=== PATIENT | male | born 1960 | race Caucasian/White ===

== ENCOUNTER 2021-08-09 00:09 | Day surgery (SDC) | payer OTHER, SELFPAY ==
[2021-07-25 13:44] VITALS: BMI 30.4
[2021-08-09 09:11] VITALS: BP 161/94; PULSE 74; RESP 18; TEMP 36.6; O2SAT 98
[2021-08-09] MEDS: LACTATED RINGERS 1,000 ML 150 ML IV CONT (09:23)
--- NOTE | 2021-08-09 09:46 | P.CONGI_ITS ---
Assessment and Plan Assessment and plan (1) Screening for colon cancer: Code(s): Z12.11 - Encounter for screening for malignant neoplasm of colon Status: Acute Assessment and Plan: Patient presents for neoplasia screening colonoscopy. Appears to be at average risk for colon polyps. Further recommendations will be given after colonoscopy. GI Consult Note Consult date/time: 08/09/21 09:46 Reason for consult: Neoplasia screening. HPI: Tim Becker is a 61 year old male Presents for screening colonoscopy. Patient's current weight appetite bowel movements are normal. He denies abdominal pain. He has had no bleeding. Patient's family history is noncontributory. Patient's last colonoscopy was 10 years ago was unremarkable. Presents today for neoplasia screening. Review of Systems Review of Systems: Review of systems noncontributory. [facility] Surgical History Surgical History History of appendectomy (~1977) History of colonoscopy (~01/30/12) Family History Family History Father Malignant neoplasm of prostate Social History Social History Smoking packs per day: 1 Smoking cigarettes per day: 20.0 Years smoked: 20 Smoking pack-years: 20.00 Smoking status: Former smoker Tobacco type: cigarettes Alcohol intake: current Drinks per week: 14 Substance use: current Substance use type: marijuana Living arrangements: with family Spiritual care concerns: No Meds Home Medications and Allergies Home Medications Medication Instructions Recorded Confirmed Type atorvastatin 10 mg tablet See Rx Instructions .Route 06/10/21 07/25/21 Rx .COMPLEX #90 tabs lisinopril 20 mg tablet See Rx Instructions .Route 07/05/21 07/25/21 Rx .COMPLEX #30 tabs venlafaxine 75 mg capsule,extended See Rx Instructions .Route 07/05/21 07/25/21 Rx release 24 hr .COMPLEX #30 caps Allergies Allergy/AdvReac Type Severity Reaction Status Date / Time No Known Allergies Allergy Verified 08/09/21 09:10 Vital Signs Vital Signs - 24 hr 08/09/21 09:11 Temperature 97.8 F Pulse Rate 74 Respiratory Rate 18 Blood Pressure 161/94 H Pulse Oximetry 98 Oxygen Delivery Room Air Exam Narrative: Physical exam reveals patient to be alert. Vital signs stable. HEENT exam is unremarkable. Patient anicteric. Lungs are clear to auscultation and percussion. Heart is without murmur or extra sounds. Abdominal exam bowel sounds present soft nontender with no organomegaly. Digital external rectal exam is normal.
--- NOTE | 2021-08-09 09:49 | P.PNAN_ITS ---
Anes - Initial Pre Proc Eval Procedure: Operation Date: 08/09/21 09:45 Proposed Procedures p Screening Colonoscopy - Luiz Valle MD Date/Time: 08/09/21 09:49 Surgeon: Luiz Valle MD Pre Op Diagnosis: neoplasm screening Patient Data Age: 61 Gender: M Height: 1.73 m Weight: 92.5 kg Last Vital Signs Temp 97.8 F 08/09/21 09:11 Pulse 74 08/09/21 09:11 Resp 18 08/09/21 09:11 BP 161/94 H 08/09/21 09:11 Pulse Ox 98 08/09/21 09:11 O2 Del Method Room Air 08/09/21 09:11 Allergies Allergy/AdvReac Type Severity Reaction Status Date / Time No Known Allergies Allergy Verified 08/09/21 09:10 Home Medications Medication Instructions Recorded Confirmed Type atorvastatin 10 mg tablet See Rx Instructions .Route 06/10/21 07/25/21 Rx .COMPLEX #90 tabs lisinopril 20 mg tablet See Rx Instructions .Route 07/05/21 07/25/21 Rx .COMPLEX #30 tabs venlafaxine 75 mg capsule,extended See Rx Instructions .Route 07/05/21 07/25/21 Rx release 24 hr .COMPLEX #30 caps Patient hx anesthesia problems: none Family hx anesthesia problems: none Results Review: All pre-operative results and documents have been reviewed as part of the pre- operative evaluation. [facility] Surgical History Surgical History History of appendectomy (~1977) History of colonoscopy (~01/30/12) Family History Family History Father Malignant neoplasm of prostate Social History Social History Smoking packs per day: 1 Smoking cigarettes per day: 20.0 Years smoked: 20 Smoking pack-years: 20.00 Smoking status: Former smoker Tobacco type: cigarettes Alcohol intake: current Drinks per week: 14 Substance use: current Substance use type: marijuana Living arrangements: with family Spiritual care concerns: No Anes - Eval Final PreProcedure Day of Procedure 08/09/21 09:49 Patient weight: obese Heart: regular rate and rhythm Lungs: clear to auscultation Airway: Mallampati scale class II Neurological: alert and oriented Last oral intake: >/= 8 hours ASA classification: II Emergent: no Anesthetic plan: proceed Anesthesia type and monitoring: general GIVS and standard monitoring Results Review: All pre-operative results and documents have been reviewed as part of the pre- operative evaluation. Informed Consent: The patient's anesthetic plan and its attendant risks and benefits were discussed with the patient/family/POA. Questions were solicited and answers provided to the satisfaction of the patient/family/POA.
[2021-08-09 10:14] VITALS: BP 130/82; PULSE 81; RESP 20; O2SAT 97
[2021-08-09 10:24] VITALS: BP 132/80; PULSE 80; RESP 20; O2SAT 98
[2021-08-09 10:34] VITALS: BP 152/90; PULSE 79; RESP 17; O2SAT 98
== END 2021-08-09 10:38 | disposition home or self-care (01) ==
PROVIDERS: PCP Family Medicine; Visit Provider Internal Medicine Gastroenterology
PROC: 0DJD8ZZ Inspection of Lower Intestinal Tract, Via Natural or Artificial Opening Endoscopic (ICD-10-PCS; CPT 45378; principal; 2021-08-09 09:45)
DX: Z12.11 Encounter for screening for malignant neoplasm of colon (principal); K64.8 Other hemorrhoids; K57.30 Diverticulosis of large intestine without perforation or abscess without bleeding; Z87.891 Personal history of nicotine dependence; F12.90 Cannabis use, unspecified, uncomplicated; E66.9 Obesity, unspecified; Z68.31 Body mass index [BMI] 31.0-31.9, adult
CPT/HCPCS: 45378; J2001; J2704; J7120

== ENCOUNTER 2023-03-12 12:31 | Outpatient (CLI) | payer OTHER, SELFPAY ==
[2023-03-12 18:00] LABS: Prostate Specific Antigen 3.2 ng/mL (< OR = 4.0)
== END 2023-03-12 12:32 | disposition home or self-care (01) ==
PROVIDERS: PCP Family Medicine; Visit Provider Family Medicine
DX: Z12.5 Encounter for screening for malignant neoplasm of prostate (principal); E03.8 Other specified hypothyroidism; I10 Essential (primary) hypertension; E78.2 Mixed hyperlipidemia; R73.03 Prediabetes; E66.9 Obesity, unspecified
CPT/HCPCS: 36415; 84153; G0103

== ENCOUNTER 2024-06-21 09:59 | Outpatient (CLI) | payer OTHER, SELFPAY ==
--- NOTE | ~2024-06-21 | XR_ITS ---
EXAMINATION: XR chest 2V 06/21/2024 10:09 INDICATION: Cough PROCEDURE: 2 view chest COMPARISON: 04/04/2010 FINDINGS: The lungs are clear. The cardiomediastinal silhouette is within normal limits. There are no pleural effusions. There is no pneumothorax suspected. IMPRESSION: 1: NO ACUTE CARDIOPULMONARY DISEASE. Reviewed, dictated and finalized at location A.
== END 2024-06-21 10:00 | disposition home or self-care (01) ==
LOC: GOSHIMG 09:59
PROVIDERS: PCP Family Medicine; Visit Provider Family Medicine
DX: R05.9 Cough, unspecified (principal)
CPT/HCPCS: 71046

== ENCOUNTER 2024-12-09 12:25 | Outpatient (CLI) | payer OTHER, SELFPAY ==
--- NOTE | ~2024-12-09 | XR_ITS ---
EXAMINATION: XR knee LT min 4V, 12/09/2024 12:39 CDT HISTORY: Pain in left knee x 3 months, no inj, no surgery COMPARISON: No comparisons available. Findings: No acute fracture or malalignment. Moderate to severe tricompartmental degenerative changes with small effusion Soft tissues unremarkable. Impression: No acute fracture or malalignment. Reviewed, dictated and finalized at location P. Impression: No acute fracture or malalignment.
== END 2024-12-09 12:26 | disposition home or self-care (01) ==
LOC: GOSHIMG 12:28
PROVIDERS: PCP Orthopaedic Surgery; Visit Provider Family Medicine
DX: M25.562 Pain in left knee (principal)
CPT/HCPCS: 73564

== ENCOUNTER 2025-01-09 16:47 | Emergency (ER) | payer OTHER, SELFPAY ==
--- NOTE | ~2025-01-09 | CT_ITS ---
CT brain wo con HISTORY:syncope COMPARISON: None. TECHNIQUE: Axial images were obtained of the head without intravenous contrast. FINDINGS: No acute intracranial hemorrhage, mass effect or midline shift. No extra-axial fluid collections. The calvarium is intact. Mucosal thickening of the ethmoids and maxillary sinuses. Mastoid air cells are clear. IMPRESSION: No acute intracranial hemorrhage or extra axial fluid collections. All CT scans at this facility are performed using low dose modulation techniques as appropriate to perform exam including the following: automated exposure control; use of iterative reconstruction technique; adjustment of the mA and/or kV according to patient size (this includes techniques or standardized protocols for targeted exams where dose is matched to indication/reason for exam). Reviewed, dictated and finalized at location S. TO PANCAKE FRIER IMPRESSION: No acute intracranial hemorrhage or extra axial fluid collections. All CT scans at this facility are performed using low dose modulation techniqu es as appropriate to perform exam including the following: automated exposure c ontrol; use of iterative reconstruction technique; adjustment of the mA and/or kV according to patient size (this includes techniques or standardized protocol s for targeted exams where dose is matched to indication/reason for exam).
--- NOTE | ~2025-01-09 | XR_ITS ---
XR chest 2V HOSTORY: syncope COMPARISON:[ None] FINDINGS: Frontal and lateral views of the chest were obtained. The lungs are clear. The heart size is normal in size. Pulmonary vasculature is unremarkable. Osseous structures are intact. IMPRESSION: No acute lung findings.] [ ] Reviewed, dictated and finalized at location S. OYMENT CLERK
--- OUTSIDE RECORDS SUMMARY | 2025-01-09 16:15 | XMS_ITS | Encounter Summary ---
Author Organization [facility] Address [address] [place] [address] Care Team Providers Care Integrity Specialist Name Role Phone Unknown, Notinfile Primary Care Provider Unavail able Reason for Visit * Reason Comments Cough Started Thursday with yellowish brown mucus coming up. Mucinex not working. Denies NVD. Symptoms progressively getting worse. Covid test Thursday was negative. SOB on exertion. Some wheezing. Denies hx of asthma. Today may have had an episode of vasovagal and doesn't remember falling. sick symptoms Headache and feels v delvin tired and achy. Encounter Details Date Type Department Care Team (Late st Contact Info) Description 01/09/2025 4:15 PM INTEGRITY ASSESSOR Office Visit [facility] at [address] [address] Mckayla Gill PA [address] [place] [address] [address] [place] [address] Syncope, unspecified syncope type (Primary Dx); Upper respiratory tract infection, unspecified type; Shortness of breath Social History Tobacco Use Types Packs/Day Years Used Date Smoking Tobacco: Never Assessed Sex and Gender Information Value Date Recorded Sex Assigned at Not on file Legal Sex Male 8:07 AM INTEGRITY ASSESSOR Gender Identity Not on file Sexual Orientation Not on file documented as of this encounter Last Filed Vital Signs Vital Sign Reading Time Taken Comments Blood Pressure 125/86 01/09/2025 4:12 PM INTEGRITY ASSESSOR Pulse 102 01/09/2025 4:12 PM INTEGRITY ASSESSOR Temperature 36.6 C (97.8 F) 01/09/2025 4:12 PM INTEGRITY ASSESSOR Respiratory Rate 20 01/09/2025 4:12 PM INTEGRITY ASSESSOR Oxygen Saturation 98% 01/09/2025 4:12 PM INTEGRITY ASSESSOR Inhaled Oxygen Concentration - - Weight 98.5 kg (217 lb 3.2 oz) 01/09/2025 4:12 P M INTEGRITY ASSESSOR Height - - Body Mass Index 33.03 11/03/2023 9:30 AM CDT documented in this encounter Functional Status documented as of this encounter Progress Notes * Mckayla Gill PA - 01/09/2025 4:15 PM CST Images from the original note were not included. Subjective/Objective Patient ID: Tim Becker is a 64 y.o. male. This patient has verbally consented to recording this visit in order to utilize AI technology in generating this note. Chief Complaint Cough (Started Thursday with yellowish brown mucus coming up. Mucinex not working. Denies NVD. Symptoms progressively getting worse. Covid test Thursday was negative. SOB on exertion. Some wheezing. Denies hx of asthma. Today may have had an episode of vasovagal and doesn't remember falling. ) and sick symptoms (Headache and feels very tired and achy. ) History of Present Illness Tim Becker is a 64 year old male who presents with an unwitnessed fall and respiratory symptoms. He is accompanied by his . Syncope and fall - Unwitnessed fall occurred today after blowing his nose - No memory of the fall itself; recalls walking into the bathroom and then getting up off the floor - heard him blow his nose and then fall; found him confused but awake - No preceding lightheadedness, dizziness, blurry vision, chest pain, or shortness of breath Respiratory symptoms - Cough with yellow-brown sputum for several days - Shortness of breath with exertion - Wheezing episodes described as 'strangulation almost' with facial redness and difficulty breathing until airway is cleared - No fever - Home COVID test negative Chronic cough and wheezing - Coughing and wheezing present throughout the summer - Intermittent shortness of breath during this period - No prior diagnosis of allergies, asthma, or COPD - Quit smoking 15 years ago Review of Systems All other systems reviewed and are negative. Physical Exam Physical Exam Constitutional: General: He is not in acute distress. HENT: Head: Normocephalic and atraumatic. Right Ear: External ear normal. Left Ear: External ear normal. Nose: Nose normal. Mouth/Throat: Pharynx: Oropharynx is clear. Eyes: Pupils: Pupils are equal, round, and reactive to light. Cardiovascular: Rate and Rhythm: Normal rate and regular rhythm. Pulmonary: Effort: Pulmonary effort is normal. No respiratory distress. Comments: Exam limited secondary to patient's spastic cough Musculoskeletal: General: Normal range of motion. Cervical back: Normal range of motion. Skin: General: Skin is warm and dry. Neurological: General: No focal deficit present. Mental Status: He is alert and oriented to person, place, and time. Psychiatric: Mood and Affect: Mood normal. Behavior: Behavior normal. Vitals: 01/09/25 1612 BP: 125/86 Pulse: 102 Resp: 20 Temp: 36.6 ??C (97.8 ??F) TempSrc: Oral SpO2: 98% Weight: 98.5 kg (217 lb 3.2 oz) No results found. No past medical history on file. Current Outpatient Medications: atorvastatin (LIPITOR) 10 mg tablet, Take 1 tablet (10 mg total) by mouth daily, Disp: , Rfl: guaiFENesin-codeine (GUAITUSS AC) liquid 100-10 mg/5 mL, Take 5-10 mL by mouth nightly as needed for cough, Disp: 120 mL, Rfl: 0 promethazine-codeine (PHENERGAN with CODEINE) 1.25-2 mg/mL syrup, Take 5-10 mL by mouth nightly as needed for cough, Disp: 120 mL, Rfl: 0 venlafaxine XR (EFFEXOR-XR) 150 mg 24 hr capsule, Take 1 capsule (150 mg total) by mouth every morning, Disp: , Rfl: No Known Allergies Social History Tobacco Use Smoking status: None Smokeless tobacco: None Substance and Sexual Activity Drug use: None Sexual activity: None Alcohol Use: Not on file History reviewed. No pertinent surgical history. Procedures Assessment/Plan Results No results found for this or any previous visit (from the past 4 hours). Assessment & Plan Unwitnessed syncopal episode Occurred possibly after blowing his nose with no preceding symptoms. . - Referred to emergency room for evaluation to r/o cardiac or neurologic etiology Acute cough with sputum, wheezing, and exertional shortness of breath Cough with yellow-brown sputum, wheezing, and exertional shortness of breath. No hx of asthma, COPD. Negative home COVID test. - Referred to emergency room for further evaluation. There are no diagnoses linked to this encounter. Disposition Treatment plan including expectations, follow up, and return precautions discussed with patient/parent, verbalizes understanding. Medication dosage, use, and potential adverse reactions discussed with patient/parent. Advised to follow up with PCP if symptoms do not resolve as expected or sooner if condition worsens. Signs/symptoms warranting ER evaluation reviewed. Patient and/or guardian was given an opportunity to ask questions, questions answered. SURYA Stallworth Cosigned by Durga Saleh MD at 01/09/2025 4:36 PM INTEGRITY ASSESSOR GRITY ASSESSOR GRITY ASSESSOR documented in this encounter Plan of Treatment Not on file documented as of this encounter Visit Diagnoses Diagnosis Syncope, unspecified syncope type- Primary Upper respiratory tract infection, unspecified type Shortness of breath documented in this encounter Care Teams Integrity Specialist Relationship Specialty Start Date End Date Unknown, Notinfile PCP - General 11/03/23 documented as of this encounter
--- OUTSIDE RECORDS SUMMARY | 2025-01-09 16:50 | XMS_ITS | Clinical Summary ---
Author Organization [address] [address] Care Team Providers Care Field Servicer Name Role Phone Unknown, Notinfile Primary Care Provider Unavail able Allergies No known active allergies Medications atorvastatin (LIPITOR) 10 mg tablet Take 1 tablet (10 mg total) by mouth daily 09/17/2023 Active venlafaxine XR (EFFEXOR-XR) 150 mg 24 hr capsule Take 1 capsule (150 mg total) by mouth every morning 09/28/2023 Active promethazine-co deine (PHENERGAN with CODEINE) 1.25-2 mg/mL syrup Take 5-10 mL by mouth nightly as needed for cough 120 mL 11/03/2023 Active guaiFENesin-cod eine (GUAITUSS AC) liquid 100-10 mg/5 mL Take 5-10 mL by mouth nightly as needed for cough 120 mL 11/04/2023 Active Active Problems No known active problems Encounters Date Type Department Care Team Description 01/09/2025 4:15 PM MENAGERIE CARETAKER Office Visit [facility] Care at [address] [address] Mckayal Gill PA Syncope, unspecified syncope type (Primary Dx); Upper respiratory tract infection, unspecified type; Shortness of breath from Last 3 Months Social History Tobacco Use Types Packs/Day Years Used Date Smoking Tobacco: Never Assessed Sex and Gender Information Value Date Recorded Sex Assigned at Not on file Legal Sex Male 8:07 AM MENAGERIE CARETAKER Gender Identity Not on file Sexual Orientation Not on file Last Filed Vital Signs Vital Sign Reading Time Taken Comments Blood Pressure 125/86 01/09/2025 4:12 PM MENAGERIE CARETAKER Pulse 102 01/09/2025 4:12 PM MENAGERIE CARETAKER Temperature 36.6 C (97.8 F) 01/09/2025 4:12 PM MENAGERIE CARETAKER Respiratory Rate 20 01/09/2025 4:12 PM MENAGERIE CARETAKER Oxygen Saturation 98% 01/09/2025 4:12 PM MENAGERIE CARETAKER Inhaled Oxygen Concentration - - Weight 98.5 kg (217 lb 3.2 oz) 01/09/2025 4:12 P M MENAGERIE CARETAKER Height 172.7 cm (5' 8) 11/03/2023 9:30 AM CDT Body Mass Index 33.03 11/03/2023 9:30 AM CDT Plan of Treatment Health Maintenance Due Date Last Done Comments Colon Cancer Screening-Colonoscopy 1960 Depression Screening 1960 Hepatitis C Screening 1960 Prostate Cancer Screening-PSA 1960 Hepatitis B Screening 1978 Regular Well Visit/Exam 18-64 1978 Influenza Vaccine (#1) 2024 11/21/2021 DTaP/Tdap/Td Vaccine (2 - Td or Tdap) 10/10/2025 10/11/2015 Zoster Vaccine Completed 03/07/2023, 03/08/2022 Pneumococcal vaccine <65 Aged Out No longer eligible based on patient's age to complete this topic Insurance [facility] Care Teams Field Servicer Relationship Specialty Start Date End Date Unknown, Notinfile PCP - General 11/03/23
[2025-01-09 17:02] VITALS: BP 152/88; PULSE 100; RESP 20; TEMP 37.1; O2SAT 97
--- NOTE | 2025-01-09 18:56 | ED.SYNCOPE ---
HPI - Syncope General Chief Complaint: Syncope Stated Complaint: from cough, achy, sycope this morning Time Seen by Provider: 01/09/25 18:56 Focused HPI: This is a 64 year old male that presents to the ER for cough, wheezing. Reports he went to urgent care this morning. Reports he had a syncopal episode in the bathroom. He does not believe he hit his head. Does report some confusion after. No previous syncopal episodes. Reports shortness of breath. Denies chest pain. GENERAL: Well-appearing, well-nourished, and in no acute distress. HEAD: Normocephalic, atraumatic. CHEST: Clear to auscultation. ?No respiratory distress. HEART: Regular rate and rhythm.? NEURO: ?Alert and oriented x3. Patient screened in triage and initial orders placed.? ?Additional care and disposition to be based upon?diagnostic testing and treatment. Related Data Allergies Allergy/AdvReac Type Severity Reaction Status Date / Time No Known Allergies Allergy Verified 12/22/24 11:44 Review of Systems Review of Systems: All systems reviewed & are unremarkable except as noted in HPI and below PMFSH Surgical History Surgical History History of appendectomy (~1977) History of colonoscopy (~01/30/12) Family History Family History Father Malignant neoplasm of prostate Social History Social History (Updated 12/22/24 @ 14:52 by Lana Harkins [facility]) Smoking packs per day: 1 Smoking cigarettes per day: 20.0 Years smoked: 20 Smoking pack-years: 20.00 Tobacco type: cigarettes Alcohol intake: current Drinks per week: 14 Substance use: current Substance use type: marijuana Current Housing: Decline to Answer Concerned About Future Housing: Decline to Answer Difficulty Paying Gas/Electric Bills: Decline to Answer Difficulty Paying for Meds: Decline to Answer Currently Unemployed: Decline to Answer Education: Decline to Answer Difficulty w/ Childcare or Family Care: Decline to Answer Living arrangements: with family Spiritual care concerns: No Exam Narrative: GENERAL: Well-appearing, well-nourished, and in no acute distress. HEAD: Normocephalic, atraumatic. EYES: EOMI. ENT: Nares clear, no rhinorrhea or epistaxis. Mucous membranes moist. Oropharynx without tonsillar hypertrophy exudate or other lesions. CHEST: No respiratory distress. Mild, expiratory wheezing. No rales or rhonchi HEART: Regular rate and rhythm. No murmur heard. Normal peripheral pulses. EXTREMITIES: Normal range of motion. No edema. SKIN: Warm, dry, no rash. NEURO: No focal deficits. Alert and oriented x3. Normal gait PSYCH: Normal mood and affect Course Vital Signs Vital signs: Vital Signs Temperature 98.7 F 01/09/25 17:02 Pulse Rate 100 01/09/25 17:02 Respiratory Rate 20 01/09/25 17:02 Blood Pressure 152/88 H 01/09/25 17:02 Pulse Oximetry 97 01/09/25 17:02 Oxygen Delivery Room Air 01/09/25 17:02 Temperature 98.7 F 01/09/25 17:02 Pulse Rate 100 01/09/25 17:02 Respiratory Rate 20 01/09/25 17:02 Blood Pressure 152/88 H 01/09/25 17:02 Pulse Oximetry 97 01/09/25 17:02 Oxygen Delivery Room Air 01/09/25 17:02 MDM - Syncope MDM Narrative Medical decision making narrative: Patient presents to the emergency department after a syncopal episode after coughing. Patient is afebrile and nontoxic appearing. His vitals are stable. CBC with mild leukocytosis to 13. Hemoglobin is normal. Metabolic panel without concerning findings. EKG without concerning changes, baseline troponin is negative. Chest x-ray without acute cardiopulmonary abnormality. CT brain is normal. Patient updated on his workup. Reports relief with nebulizer treatment. He is to follow up with PCP. He was given warnings to return to the ER Differential Diagnosis Differential diagnosis: Likely syncope due to orthostatic hypotension, vasovagal syncope, subarachnoid hemorrhage, dehydration and other (bronchitis, pneumonia) Lab Data Attestation: I reviewed the patient's lab results. Imaging Data Radiologist's impression: ITS Impressions Head CT 01/09/25 19:29 IMPRESSION: No acute intracranial hemorrhage or extra axial fluid collections. All CT scans at this facility are performed using low dose modulation techniques as appropriate to perform exam including the following: automated exposure control; use of iterative reconstruction technique; adjustment of the mA and/or kV according to patient size (this includes techniques or standardized protocols for targeted exams where dose is matched to indication/reason for exam). Chest X-Ray 01/09/25 19:49 IMPRESSION: No acute lung findings.] [ ] ECG Data EKG #1: ECG completion date: 01/09/25 EKG Interpretation: normal rate, sinus rhythm, no ST changes and normal QT Critical Care Time Critical Care Time Critical Care Time: No Discharge Plan Discharge Clinical Impression: Acute bronchitis Qualifiers: Bronchitis organism: unspecified organism Qualified Code(s): J20.9 - Acute bronchitis, unspecified Syncope Qualifiers: Syncope type: unspecified Qualified Code(s): R55 - Syncope and collapse Patient Disposition: Home Condition: Improved Instructions: Syncope (ED), Acute Bronchitis (ED) Additional Instructions: Return to the emergency department if you experience fever, chest pain, shortness of breath, vomiting, weakness, numbness, or any other symptoms that are concerning to you. Remain well hydrated. Continue steroid as prescribed. Albuterol 2 puffs every 4-6 hours as needed for shortness of breath or wheezing Follow up with your primary care doctor Patient Language: Amharic Prescriptions: New prednisone 20 mg tablet 40 mg PO DAILY 4 Days Qty: 8 0RF No Action albuterol sulfate [Ventolin HFA] 90 mcg/actuation HFA aerosol inhaler 2 inh inhalation Q4H PRN (Reason: shortness of breath or wheezing) Qty: 8.5 0RF montelukast 10 mg tablet 10 mg PO QHS Qty: 90 1RF amlodipine 5 mg tablet 5 mg PO DAILY Qty: 90 1RF lisinopril 40 mg tablet 40 mg PO DAILY Qty: 90 1RF venlafaxine 150 mg capsule,extended release 24hr See Rx Instructions .ROUTE .COMPLEX Qty: 90 1RF Dose Instruction: TAKE 1 CAPSULE BY MOUTH EVERY MORNING Rx Instructions: TAKE 1 CAPSULE BY MOUTH EVERY MORNING atorvastatin [Lipitor] 20 mg tablet 20 mg PO QHS Qty: 90 1RF Follow-up/Referrals: Pascale Fuller DO [Primary Care Provider, Family Practice]
--- NOTE | 2025-01-09 18:58 | ECG_ITS ---
Test Date: 2025-01-09 21:14:21 Measurements Intervals [place] Rate: 96 P: 39 SC: 138 QRS: -55 QRSD: 109 T: 12 QT: 352 QTc: 447 Interpretive Statements SINUS RHYTHM LEFT AXIS DEVIATION [QRS AXIS < -30] No previous ECG available for comparison Electronically Signed On 01-10-2025 17:33:53 TELEVISION PRESENTER by Edgar Davies M.D.
--- NOTE | 2025-01-09 19:26 | PCRCNOTE ---
Can not give breathing TX Pt no in room.
[2025-01-09 20:47] VITALS: O2SAT 95
[2025-01-09 20:48] VITALS: BP 124/96; PULSE 115; RESP 18; O2SAT 95
[2025-01-09] MEDS: SODIUM CHLORIDE 0.9% IV 1,000 ML 999 ML IV CONT (21:05)
[2025-01-09 21:23] LABS: Hematocrit 41.9 % (42.0-52.0); Hemoglobin 14.3 g/dL (14.0-18.0); Immature Granulocyte Percent A 0.6 % (0-0.5); Lymphocytes Absolute Auto 1.47 K/mm3 (0.9-3.2); Mean Corpuscular HGB Conc 34.1 g/dl (32-36); Mean Corpuscular Hemoglobin 31.6 pg (26-34); Mean Corpuscular Volume 92.5 fl (80-100); Nucleated Red Blood Cells Absolute Auto 0.000 K/mm3 (0.0-0.012); Nucleated Red Blood Cells Perc 0.0 % (0.0-0.2); Platelet Count Result 207 k/mm3 (150-375); Red Blood Count 4.53 M/mm3 (4.6-6.20); White Blood Count 13.1 K/mm3 (4.5-10.0)
[2025-01-09 21:24] VITALS: PULSE 103; RESP 20
[2025-01-09] MEDS: IPRATROPIUM 0.5 MG/ALBUTEROL SULFATE 2.5 MG (BASE) AMPUL.NEB 3 ML INHALATION (21:24)
--- NOTE | 2025-01-09 21:29 | PCRCNOTE ---
.Breathing TX given late due to pt did not have a room
[2025-01-09 21:33] VITALS: PULSE 104; RESP 20
[2025-01-09 21:34] LABS: INR 1.1; Prothrombin Time 13.7 Seconds (11.1-14.7)
[2025-01-09 21:35] LABS: Partial Thromboplastin Time 29.4 Seconds (22.3-36.8)
[2025-01-09 21:37] LABS: Alanine Aminotransferase 25 U/L (6-50); Albumin Level 4.5 g/dL (3.5-5.1); Alkaline Phosphatase 125 U/L (38-126); Anion Gap 8 mmol/L (4-12); Aspartate Amino Transferase 25 U/L (17-59); Bilirubin,Total 0.8 mg/dL (0.2-1.3); Blood Urea Nitrogen 18 mg/dL (9-20); Calcium 9.6 mg/dL (8.4-10.2); Carbon Dioxide 26 mmol/L (22-30); Chloride 105 mmol/L (98-107); Estimated CRCL calculation 64 ml/min; Estimated Glomerular Filt Rate > 60; Glucose 108 mg/dL (65-110); Potassium 4.7 mmol/L (3.4-5.0); Sodium 139 mmol/L (137-145); Total Protein 7.8 g/dL (6.3-8.2)
[2025-01-09 21:49] LABS: Troponin I < 0.012 ng/mL (0.000-0.034)
[2025-01-09 21:59] LABS: Influenza A QL RT-PCR Negative (Negative); Influenza B QL RT-PCR Negative (Negative); RSV RNA, RT-PCR Negative (Negative); SARS-CoV-2 RNA PCR Negative (Negative)
[2025-01-09 23:13] VITALS: BP 129/83; PULSE 98; RESP 19; O2SAT 99
== END 2025-01-09 23:13 | disposition home or self-care (01) ==
PROVIDERS: Emergency Provider Physician Assistant; PCP Family Medicine
DX: J20.9 Acute bronchitis, unspecified (principal); R55 Syncope and collapse
CPT/HCPCS: 36415; 70450; 71046; 80053; 84484; 85025; 85610; 85730; 87637; 93005; 94640; 96360; 99284; J7030; J7512